=== PATIENT | female | born 1990 | race Caucasian/White ===

== ENCOUNTER 2018-06-09 19:10 | Emergency (ER) | payer OTHER ==
[2018-06-09] MEDS ORDERED: Sodium Chloride 0.9% 1,000 ML IV STA (20:53)
--- NOTE | 2018-06-09 21:01 | ED PDOC ---
HPI: Headache Time Seen by Provider: 06/09/18 19:10 Chief Complaint (Nursing): Headache Chief Complaint (Provider): Headache History Per: Patient History/Exam Limitations: no limitations Onset/Duration Of Symptoms: Days (x3 weeks) Additional Complaint(s): Patient is a 27 y/o female who presents to the ED complaining of headache for the past x3 weeks. Her regular headaches are localized to her gnosticist but today she reports the headache was to the entire back of her head and behind her eyes. Patient reports associated nausea and light sensitivity. She denies any vomiting. Of note patient has never had migraines. pmd is in [place] at [place] pt denies cp or sob. pt denies neck pain or stiffness. denies fever PMD: in [place], [place] Past Medical History Reviewed: Historical Data, Nursing Documentation, Vital Signs Vital Signs: Last Vital Signs Temp 98.8 F 06/09/18 19:31 Pulse 74 06/09/18 19:31 Resp 18 06/09/18 19:31 BP 114/67 06/09/18 19:31 Pulse Ox 100 06/09/18 19:31 - Medical History PMH: No Chronic Diseases - Surgical History Surgical History: No Surg Hx - Family History Family History: States: Unknown Family Hx - Social History Current smoker - smoking cessation education provided: No Alcohol: None Drugs: Denies - Home Medications Home Medications: Ambulatory Orders Medication Instructions Recorded Ibuprofen [Motrin Tab] 600 mg PO Q6 PRN #20 tab 06/10/18 - Allergies Allergies/Adverse Reactions: Allergies Allergy/AdvReac Type Severity Reaction Status Date / Time No Known Allergies Allergy Verified 06/09/18 19:31 Review of Systems ROS Statement: Except As Marked, All Systems Reviewed And Found Negative Eyes: Positive for: Other (photosensitivity) Gastrointestinal: Positive for: Nausea. Negative for: Vomiting Neurological: Positive for: Headache Physical Exam - Reviewed Nursing Documentation Reviewed: Yes Vital Signs Reviewed: Yes - Physical Exam Appears: Positive for: Well, Non-toxic, No Acute Distress Head Exam: Positive for: ATRAUMATIC, NORMAL INSPECTION, NORMOCEPHALIC Skin: Positive for: Normal Color, Warm, DRY Eye Exam: Positive for: EOMI, Normal appearance, PERRL ENT: Positive for: Normal ENT Inspection Neck: Positive for: Normal, Painless ROM, Supple. Negative for: Limited ROM Cardiovascular/Chest: Positive for: Regular Rate, Rhythm. Negative for: Murmur Respiratory: Positive for: Normal Breath Sounds. Negative for: Respiratory Distress Gastrointestinal/Abdominal: Positive for: Normal Exam, Soft. Negative for: Tenderness Back: Positive for: Normal Inspection Extremity: Positive for: Normal ROM. Negative for: Pedal Edema, Deformity Neurologic/Psych: Positive for: Alert, awake overnight counselor II-XII (intact), Oriented, Cerebellar Tests (normal), Gait (stable). Negative for: Motor/Sensory Deficits, Aphasia, Facial Droop - Laboratory Results Result Diagrams: 06/09/18 21:45 06/09/18 21:45 - ECG O2 Sat by Pulse Oximetry: 100 (RA) Pulse Ox Interpretation: Normal Medical Decision Making Medical Decision Making: Time: 20:53 Initial Impression: Headache Initial Plan: CT head CMP CBC w/ diff IV fluids Reglan 2150 CT Head FINDINGS: BRAIN No acute intraparenchymal hemorrhage. No mass lesion. No CT evidence for acute territorial infarct. No midline shift or extra-axial collections. VENTRICLES: No hydrocephalus. ORBITS: The orbits are unremarkable. SINUSES AND MASTOIDS: The paranasal sinuses and mastoid air cells are clear. BONES: No fracture. SOFT TISSUES: Unremarkable. IMPRESSION: No acute intracranial abnormality. Electronically signed on Jun 09, 2018 9:50:06 PM EDT by: Rodolfo Paige M.D., MICHELLE Certified By [facility] Trained MRI and CT Specialist 0024 Upon reevaluation patient is feeling better, is medically stable, and requires no further treatment in the ED at this time. 0044 Repeat EKG shows occasional PVC and sinus rhythm with rate of 74. Patient is without shortness of breath or chest pain. 0059 Troponin results show no significant abnormality. Patient is aware of abnormal EKG and that she will need to follow up as an outpatient with her doctor Scribe Attestation: Documented by Satish Perez acting as a scribe for Kamaljit Claudio MD. Provider Scribe Attestation: All medical record entries made by the Scribe were at my direction and personally dictated by me. I have reviewed the chart and agree that the record accurately reflects my personal performance of the history, physical exam, medical decision making, and the department course for this patient. I have also personally directed, reviewed, and agree with the discharge instructions and disposition. Disposition - Clinical Impression Clinical Impression: Headache - Patient ED Disposition Is Patient to be Admitted: No Counseled Patient/Family Regarding: Studies Performed, Diagnosis, Need For Followup - Disposition Disposition: Routine/Home Disposition Time: 00:24 Condition: IMPROVED Additional Instructions: follow up with your primary doctor in 1-2 days for referral to neurologist return to the ED with any worsening or concerning symptoms Prescriptions: Ibuprofen [Motrin Tab] 600 mg PO Q6 PRN #20 tab PRN Reason: Pain, Moderate (4-7) Instructions: Headache, Adult (DC) Forms: [employer] ([place])
[2018-06-09 21:52] LABS: BASO % 0.7 % (0.0-2.0); EOS # 0.1 K/uL (0.0-0.7); EOS % 2.2 % (0.0-4.0); HEMOGLOBIN 11.7 g/dL (12.0-16.0); LYMPH # 1.7 K/uL (1.0-4.3); LYMPH % 30.4 % (20.0-40.0); MEAN CELL VOLUME 86.8 fl (81.0-99.0); MEAN CORPUSCULAR HEMOGLOBIN 28.7 pg (27.0-31.0); MEAN PLATELET VOLUME 10.2 fl (7.2-11.7); MONO # 0.4 K/uL (0.0-0.8); MONO % 7.2 % (0.0-10.0); NEUT # 3.2 K/uL (1.8-7.0); NEUT % 59.5 % (50.0-75.0); NRBC % 0.1 % (0.0-0.0); RBC 4.07 Mil/uL (3.80-5.20); RED CELL DISTRIBUTION WIDTH 14.7 % (11.5-14.5); WHITE BLOOD COUNT 5.4 K/uL (4.8-10.8)
[2018-06-09 22:01] LABS: ALB/GLOB RATIO 1.2 (1.0-2.1); ALBUMIN 3.7 g/dL (3.5-5.0); ALT/SGPT 24 U/L (9-52); AST/SGOT 18 U/L (14-36); BLOOD UREA NITROGEN 10 mg/dl (7-17); CALCIUM 8.4 mg/dL (8.4-10.2); GFR NON-AFRICAN AMERICAN > 60
[2018-06-10 01:35] VITALS: BP 122/51; PULSE 72; RESP 19; TEMP 98.1
[2018-06-10 06:34] VITALS: O2SAT 100
--- NOTE | 2018-06-10 10:20 | CT ---
Date of service: 06/09/2018 PROCEDURE: CT HEAD WITHOUT CONTRAST. HISTORY: headache COMPARISON: None available. TECHNIQUE: Axial computed tomography images were obtained through the head/brain without intravenous contrast. Radiation dose: Total exam DLP = 828.45 mGy-cm. This CT exam was performed using one or more of the following dose reduction techniques: Automated exposure control, adjustment of the mA and/or kV according to patient size, and/or use of iterative reconstruction technique. FINDINGS: HEMORRHAGE: No intracranial hemorrhage. BRAIN: No mass effect or edema. No atrophy or chronic microvascular ischemic changes. VENTRICLES: Unremarkable. No hydrocephalus. CALVARIUM: Unremarkable. PARANASAL SINUSES: Unremarkable as visualized. No significant inflammatory changes. MASTOID AIR CELLS: Unremarkable as visualized. No inflammatory changes. OTHER FINDINGS: None. IMPRESSION: No evidence of acute intracranial hemorrhage mass effect or midline shift. Preliminary report with concordant findings was submitted to the referring physician.
== END 2018-06-10 01:25 | disposition home or self-care (01) ==
LOC: H.ER 19:10
DX: R51 Headache (principal)
CPT/HCPCS: 70450; 80053; 81025; 84484; 85025; 96361; 96374; 96375; 99285; J1885; J2765; J7030